=== PATIENT | female | born 2005 | race Caucasian/White ===

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

== ENCOUNTER → 2025-03-13 | Outpatient (CLI) | payer OTHER | LOC: M RAD 14:18 | PROVIDERS: ATTEND Family Medicine | DX: Z84.2 Family history of other diseases of the genitourinary system (principal); N94.89 Other specified conditions associated with female genital organs and menstrual cycle ==